=== PATIENT | male | born 1950 | race Hispanic/Latino ===

== ENCOUNTER → 2018-06-08 13:23 | Outpatient (CLI) | payer MEDICARE, OTHER, SELFPAY ==
--- NOTE | 2018-06-08 | DI.US.S_ITS ---
PROCEDURE: US ARTERIAL DUPLEX LE BI INDICATIONS: PERIPHERAL VASCULAR DISEASE TECHNIQUE: Color and pulse Doppler interrogation was performed of both lower extremity arterial systems, with image documentation. COMPARISON: None. FINDINGS: Right lower extremity: Common femoral artery: 115 cm/sec, with triphasic flow. Deep femoral artery: 90 cm/sec, with biphasic flow. Proximal superficial femoral artery: 106 cm/sec, with triphasic flow. Mid superficial femoral artery: 93 cm/sec, with triphasic flow. Distal superficial femoral artery: 94 cm/sec, with triphasic flow. Popliteal artery: 82 cm/sec, with triphasic flow. Posterior tibial artery: 66 cm/sec, with triphasic flow. Anterior tibial artery/dorsalis pedis: 84 cm/sec, with triphasic flow. Rodriguez-scale imaging description: Moderate scattered plaque. Left lower extremity: Common femoral artery: 144 cm/sec, with triphasic flow. Deep femoral artery: 64 cm/sec, with biphasic flow. Proximal superficial femoral artery: 108 cm/sec, with triphasic flow. Mid superficial femoral artery: 84 cm/sec, with triphasic flow. Distal superficial femoral artery: 103 cm/sec, with triphasic flow. Popliteal artery: 80 cm/sec, with triphasic flow. Posterior tibial artery: 65 cm/sec, with triphasic flow. Anterior tibial artery/dorsalis pedis: 79 cm/sec, with triphasic flow. Rodriguez-scale imaging description: Moderate scattered plaque. IMPRESSION: Moderate scattered plaque and no hemodynamically significant peripheral arterial stenosis. Dictated by: Tk CARRINGTON Interpreted: Ramesh Dolan MD on 06/08/2018 at 17:11 Approved by: Ramesh Dolan M.D. on 06/08/2018 at 17:54
--- NOTE | 2018-06-08 | DI.US.S_ITS ---
PROCEDURE: US RONNELL LIMITED SINGLE LEVEL INDICATIONS: DIABETES TECHNIQUE: Ankle-brachial indices were obtained bilaterally and recorded. COMPARISONS: FINDINGS: Right ankle brachial index (RONNELL): 1.1 Left ankle brachial index (RONNELL): 1.0 IMPRESSION: Ankle-brachial indices within normal limits bilaterally. Dictated by: Tk Philippe [facility] Interpreted: Ramesh Dolan MD on 06/08/2018 at 16:11 Approved by: Ramesh Dolan M.D. on 06/08/2018 at 17:54
== END ==
PROVIDERS: Visit Provider Podiatrist
DX: I73.9 Peripheral vascular disease, unspecified (principal); E11.621 Type 2 diabetes mellitus with foot ulcer
CPT/HCPCS: 93922; 93925

== ENCOUNTER → 2018-10-19 14:33 | Outpatient (CLI) | payer MEDICARE, OTHER, SELFPAY | PROVIDERS: PCP Nurse Practitioner Family; Referring Provider Podiatrist; Visit Provider Family Medicine | DX: L89.620 Pressure ulcer of left heel, unstageable (principal) | CPT/HCPCS: 99203; 99213 ==

== ENCOUNTER → 2019-08-03 08:44 | Outpatient (CLI) | payer MEDICARE, OTHER, SELFPAY | PROVIDERS: PCP Nurse Practitioner Family; Referring Provider Podiatrist; Visit Provider Family Medicine | DX: E11.610 Type 2 diabetes mellitus with diabetic neuropathic arthropathy (principal); E11.621 Type 2 diabetes mellitus with foot ulcer; L97.511 Non-pressure chronic ulcer of other part of right foot limited to breakdown of skin; L97.521 Non-pressure chronic ulcer of other part of left foot limited to breakdown of skin; M14.672 Charcot's joint, left ankle and foot; M14.671 Charcot's joint, right ankle and foot; M79.89 Other specified soft tissue disorders; Z79.84 Long term (current) use of oral hypoglycemic drugs; Z79.4 Long term (current) use of insulin; Z98.1 Arthrodesis status | CPT/HCPCS: 11042; 73630; 73660; 87070; 87075; 87077; 87147; 87186; 87205; 99214 ==

== ENCOUNTER → 2019-08-03 11:10 | Outpatient (CLI) | payer MEDICARE, OTHER, SELFPAY ==
--- NOTE | 2019-08-03 | DI.RAD.S_ITS ---
PROCEDURE: XR FOOT LT MIN 3V INDICATIONS: eval osteo lt plant midfoot/ r gr toe TECHNIQUE: 3 views of the foot were acquired. COMPARISON: [facility], CR, XR FOOT 3+ VIEWS LEFT, 05/19/2019, 8:49. [facility], CR, XR FOOT 3 VIEWS WEIGHT BEARING RIGHT, 06/08/2019, 12:38. FINDINGS: Bones: There are stable postsurgical changes from arthrodesis across the subtalar joint as well as the medial aspect of the left midfoot and arthrodesis of the calcaneocuboid joint. No significant change in increased lucency surrounding the fixation hardware traversing the first tarsometatarsal joint. No evidence for hardware fracture. Extensive ossification involving the plantar aspect of the right midfoot with overlying soft tissue edema and apparent skin defect over the plantar aspect of the foot. No evidence for soft tissue gas. No definite underlying osseous erosions. Stable degenerative changes of the left foot most severe at the first and second metatarsophalangeal joints. Persistent subchondral lucencies involving the first through fifth metatarsal heads and base of the fifth proximal phalanx. No new osseous erosions identified. No suspicious areas of cortical destruction compared to prior study. No suspicious periosteal reaction. Overall stable alignment of the left foot. Soft tissues: No tibiotalar joint effusion. Achilles tendon appears normal. There are vascular calcifications. IMPRESSION: 1. Persistent lucency surrounding surgical fixation hardware at the first tarsometatarsal joint which is again suspicious for hardware loosening. No hardware fracture. 2. Extensive ossification over the plantar aspect of the left midfoot with overlying soft tissue defect. No evidence for soft tissue gas. No evidence for underlying cortical destruction or osseous erosions. 3. Other chronic findings as above. Dictated by: Wesley Navarro M.D. on 08/03/2019 at 16:14 Approved by: Wesley Navarro M.D. on 08/03/2019 at 16:26
--- NOTE | 2019-08-03 | DI.RAD.S_ITS ---
PROCEDURE: XR TOE RT MIN 2V INDICATIONS: eval osteo lt plant midfoot/ r gr toe TECHNIQUE: 3 views of the right great toe(s) acquired. COMPARISON: [facility], CR, XR FOOT 3 VIEWS WEIGHT BEARING RIGHT, 06/08/2019, 12:38. 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 Degenerative changes of the right forefoot and midfoot as before. There is now soft tissue swelling and defect over the medial aspect of the distal right great toe which appears to communicate with the distal margin of the first toe distal phalanx. There is mild cortical erosion underlying this area. Soft tissues: No suspicious soft tissue densities. There are vascular calcifications. IMPRESSION: Soft tissue defect overlying the distal right first toe with associated cortical erosions of the underlying great toe distal phalanx. Findings are suspicious for osteomyelitis. Dictated by: Wesley Navarro M.D. on 08/03/2019 at 16:26 Approved by: Wesley Navarro M.D. on 08/03/2019 at 16:31
== END ==
PROVIDERS: PCP Family Medicine; Referring Provider Family Medicine; Visit Provider Family Medicine
DX: E11.621 Type 2 diabetes mellitus with foot ulcer (principal); M79.89 Other specified soft tissue disorders; Z98.1 Arthrodesis status
CPT/HCPCS: 73630; 73660; 87070; 87075; 87205

== ENCOUNTER → 2019-08-09 13:58 | Outpatient (CLI) | payer MEDICARE, OTHER, SELFPAY | PROVIDERS: PCP Family Medicine; Referring Provider Podiatrist; Visit Provider Family Medicine | DX: E11.610 Type 2 diabetes mellitus with diabetic neuropathic arthropathy (principal); L97.511 Non-pressure chronic ulcer of other part of right foot limited to breakdown of skin; L97.521 Non-pressure chronic ulcer of other part of left foot limited to breakdown of skin | CPT/HCPCS: 11042; 99214 ==

== ENCOUNTER → 2019-08-16 14:53 | Outpatient (CLI) | payer MEDICARE, OTHER, SELFPAY | PROVIDERS: PCP Family Medicine; Referring Provider Podiatrist; Visit Provider Family Medicine | DX: E11.610 Type 2 diabetes mellitus with diabetic neuropathic arthropathy (principal); M86.671 Other chronic osteomyelitis, right ankle and foot; L97.511 Non-pressure chronic ulcer of other part of right foot limited to breakdown of skin; L97.521 Non-pressure chronic ulcer of other part of left foot limited to breakdown of skin; Z79.4 Long term (current) use of insulin; Z79.84 Long term (current) use of oral hypoglycemic drugs | CPT/HCPCS: 11042; 99213 ==

== ENCOUNTER → 2022-01-24 09:28 | Outpatient (CLI) | payer MEDICARE, OTHER, SELFPAY | PROVIDERS: PCP Family Medicine; Visit Provider Family Medicine | DX: E11.621 Type 2 diabetes mellitus with foot ulcer (principal); L97.522 Non-pressure chronic ulcer of other part of left foot with fat layer exposed; M14.671 Charcot's joint, right ankle and foot; M14.672 Charcot's joint, left ankle and foot; L08.89 Other specified local infections of the skin and subcutaneous tissue; L53.9 Erythematous condition, unspecified; E11.40 Type 2 diabetes mellitus with diabetic neuropathy, unspecified; Z79.4 Long term (current) use of insulin | CPT/HCPCS: 11042; 87070; 87075; 87077; 87147; 87186; 87205; 99214 ==

== ENCOUNTER → 2022-02-05 09:30 | Outpatient (CLI) | payer MEDICARE, OTHER, SELFPAY | PROVIDERS: PCP Family Medicine; Referring Provider Family Medicine; Visit Provider Family Medicine | DX: E11.621 Type 2 diabetes mellitus with foot ulcer (principal); L97.522 Non-pressure chronic ulcer of other part of left foot with fat layer exposed; L97.512 Non-pressure chronic ulcer of other part of right foot with fat layer exposed; E11.610 Type 2 diabetes mellitus with diabetic neuropathic arthropathy; Z79.4 Long term (current) use of insulin; L08.89 Other specified local infections of the skin and subcutaneous tissue; A49.01 Methicillin susceptible Staphylococcus aureus infection, unspecified site; E11.40 Type 2 diabetes mellitus with diabetic neuropathy, unspecified | CPT/HCPCS: 11042; 99214 ==

== ENCOUNTER → 2022-02-12 10:00 | Outpatient (CLI) | payer MEDICARE, OTHER, SELFPAY | PROVIDERS: PCP Family Medicine; Referring Provider Family Medicine; Visit Provider Family Medicine | DX: E11.621 Type 2 diabetes mellitus with foot ulcer (principal); L97.522 Non-pressure chronic ulcer of other part of left foot with fat layer exposed; L97.512 Non-pressure chronic ulcer of other part of right foot with fat layer exposed; E11.610 Type 2 diabetes mellitus with diabetic neuropathic arthropathy; R60.0 Localized edema; Z79.4 Long term (current) use of insulin; Z79.84 Long term (current) use of oral hypoglycemic drugs | CPT/HCPCS: 11042; 97597 ==

== ENCOUNTER → 2022-03-05 09:50 | Outpatient (CLI) | payer MEDICARE, OTHER, SELFPAY | PROVIDERS: PCP Family Medicine; Referring Provider Podiatrist; Visit Provider Family Medicine | DX: E11.621 Type 2 diabetes mellitus with foot ulcer (principal); L97.522 Non-pressure chronic ulcer of other part of left foot with fat layer exposed; E11.610 Type 2 diabetes mellitus with diabetic neuropathic arthropathy; Z79.4 Long term (current) use of insulin; Z89.421 Acquired absence of other right toe(s); Z79.84 Long term (current) use of oral hypoglycemic drugs | CPT/HCPCS: 11042; 99213 ==

== ENCOUNTER → 2022-03-12 13:28 | Outpatient (CLI) | payer MEDICARE, OTHER, SELFPAY | PROVIDERS: PCP Family Medicine; Referring Provider Podiatrist; Visit Provider Family Medicine | DX: E11.610 Type 2 diabetes mellitus with diabetic neuropathic arthropathy (principal); Z86.31 Personal history of diabetic foot ulcer; Z79.4 Long term (current) use of insulin; Z79.84 Long term (current) use of oral hypoglycemic drugs; Z89.421 Acquired absence of other right toe(s) | CPT/HCPCS: 99212; 99213 ==

== ENCOUNTER → 2022-11-20 08:52 | Outpatient (CLI) | payer MEDICARE, OTHER, SELFPAY | PROVIDERS: PCP Family Medicine; Referring Provider Podiatrist; Visit Provider Surgery | DX: E11.621 Type 2 diabetes mellitus with foot ulcer (principal); L97.522 Non-pressure chronic ulcer of other part of left foot with fat layer exposed; E11.42 Type 2 diabetes mellitus with diabetic polyneuropathy; L84 Corns and callosities | CPT/HCPCS: 11042; 99213; 99214 ==

== ENCOUNTER → 2022-11-27 14:28 | Outpatient (CLI) | payer MEDICARE, OTHER, SELFPAY | PROVIDERS: PCP Family Medicine; Referring Provider Podiatrist; Visit Provider Surgery | DX: Z86.31 Personal history of diabetic foot ulcer (principal); A52.16 Charcot's arthropathy (tabetic) | CPT/HCPCS: 99212; 99213 ==

== ENCOUNTER → 2023-12-29 13:02 | Outpatient (CLI) | payer MEDICARE, OTHER, SELFPAY | PROVIDERS: PCP Family Medicine; Referring Provider Podiatrist; Visit Provider Surgery | DX: E11.621 Type 2 diabetes mellitus with foot ulcer (principal); E11.42 Type 2 diabetes mellitus with diabetic polyneuropathy; L97.522 Non-pressure chronic ulcer of other part of left foot with fat layer exposed; L97.422 Non-pressure chronic ulcer of left heel and midfoot with fat layer exposed; M21.6X2 Other acquired deformities of left foot; M14.672 Charcot's joint, left ankle and foot; M14.671 Charcot's joint, right ankle and foot | CPT/HCPCS: 11042; 87070; 87075; 87077; 87147; 87205; 99213; 99214 ==

== ENCOUNTER → 2024-01-05 14:52 | Outpatient (CLI) | payer MEDICARE, OTHER, SELFPAY | PROVIDERS: PCP Family Medicine; Referring Provider Podiatrist; Visit Provider Surgery | DX: E11.621 Type 2 diabetes mellitus with foot ulcer (principal); L97.522 Non-pressure chronic ulcer of other part of left foot with fat layer exposed; E11.42 Type 2 diabetes mellitus with diabetic polyneuropathy; M21.6X2 Other acquired deformities of left foot; M14.671 Charcot's joint, right ankle and foot; M14.672 Charcot's joint, left ankle and foot | CPT/HCPCS: 11042 ==

== ENCOUNTER → 2024-01-13 11:10 | Outpatient (CLI) | payer MEDICARE, OTHER, SELFPAY | LOC: WC 11:14 | PROVIDERS: PCP Family Medicine; Referring Provider Podiatrist; Visit Provider Surgery | DX: E11.621 Type 2 diabetes mellitus with foot ulcer (principal); E11.42 Type 2 diabetes mellitus with diabetic polyneuropathy; L97.422 Non-pressure chronic ulcer of left heel and midfoot with fat layer exposed; M21.6X2 Other acquired deformities of left foot; Z89.422 Acquired absence of other left toe(s); M14.672 Charcot's joint, left ankle and foot; M14.671 Charcot's joint, right ankle and foot | CPT/HCPCS: 99213 ==

== ENCOUNTER → 2024-01-20 11:56 | Outpatient (CLI) | payer MEDICARE, OTHER, SELFPAY | PROVIDERS: PCP Family Medicine; Referring Provider Podiatrist; Visit Provider Physician Assistant | DX: E11.621 Type 2 diabetes mellitus with foot ulcer (principal); L97.522 Non-pressure chronic ulcer of other part of left foot with fat layer exposed | CPT/HCPCS: 99213 ==

== ENCOUNTER → 2024-01-27 13:23 | Outpatient (CLI) | payer MEDICARE, OTHER, SELFPAY | LOC: WC 13:24 | PROVIDERS: PCP Family Medicine; Referring Provider Podiatrist; Visit Provider Surgery | DX: E11.621 Type 2 diabetes mellitus with foot ulcer (principal); E11.42 Type 2 diabetes mellitus with diabetic polyneuropathy; L97.422 Non-pressure chronic ulcer of left heel and midfoot with fat layer exposed; L84 Corns and callosities; M21.6X2 Other acquired deformities of left foot | CPT/HCPCS: 11042 ==

== ENCOUNTER → 2024-02-03 09:57 | Outpatient (CLI) | payer MEDICARE, OTHER, SELFPAY | LOC: WC 09:59 | PROVIDERS: PCP Family Medicine; Referring Provider Podiatrist; Visit Provider Surgery | DX: E11.621 Type 2 diabetes mellitus with foot ulcer (principal); E11.42 Type 2 diabetes mellitus with diabetic polyneuropathy; L97.422 Non-pressure chronic ulcer of left heel and midfoot with fat layer exposed; L84 Corns and callosities; M21.6X2 Other acquired deformities of left foot; M14.672 Charcot's joint, left ankle and foot; M14.671 Charcot's joint, right ankle and foot | CPT/HCPCS: 11042; 99213 ==

== ENCOUNTER → 2024-02-09 15:23 | Outpatient (CLI) | payer MEDICARE, OTHER, SELFPAY | LOC: WC 15:24 | PROVIDERS: PCP Family Medicine; Referring Provider Podiatrist; Visit Provider Surgery | DX: E11.621 Type 2 diabetes mellitus with foot ulcer (principal); L97.422 Non-pressure chronic ulcer of left heel and midfoot with fat layer exposed; M21.6X2 Other acquired deformities of left foot; L84 Corns and callosities; R20.8 Other disturbances of skin sensation | CPT/HCPCS: 11042; 99212 ==

== ENCOUNTER → 2024-02-16 09:26 | Outpatient (CLI) | payer MEDICARE, OTHER, SELFPAY | PROVIDERS: PCP Family Medicine; Referring Provider Podiatrist; Visit Provider Surgery | DX: E11.621 Type 2 diabetes mellitus with foot ulcer (principal); E11.42 Type 2 diabetes mellitus with diabetic polyneuropathy; L97.522 Non-pressure chronic ulcer of other part of left foot with fat layer exposed; L84 Corns and callosities; M21.6X2 Other acquired deformities of left foot | CPT/HCPCS: 15275; Q4159 ==

== ENCOUNTER → 2024-02-24 09:12 | Outpatient (CLI) | payer MEDICARE, OTHER, SELFPAY | PROVIDERS: PCP Family Medicine; Referring Provider Podiatrist; Visit Provider Surgery | DX: E11.621 Type 2 diabetes mellitus with foot ulcer (principal); E11.42 Type 2 diabetes mellitus with diabetic polyneuropathy; L97.522 Non-pressure chronic ulcer of other part of left foot with fat layer exposed; L84 Corns and callosities; M21.6X2 Other acquired deformities of left foot | CPT/HCPCS: 15275; Q4159 ==

== ENCOUNTER → 2024-03-01 09:43 | Outpatient (CLI) | payer MEDICARE, OTHER, SELFPAY | LOC: WC 09:44 | PROVIDERS: PCP Family Medicine; Referring Provider Podiatrist; Visit Provider Surgery | DX: E11.621 Type 2 diabetes mellitus with foot ulcer (principal); E11.42 Type 2 diabetes mellitus with diabetic polyneuropathy; L97.422 Non-pressure chronic ulcer of left heel and midfoot with fat layer exposed; L84 Corns and callosities; M21.6X2 Other acquired deformities of left foot; M14.671 Charcot's joint, right ankle and foot; M14.672 Charcot's joint, left ankle and foot | CPT/HCPCS: 15275; 99213; Q4159 ==

== ENCOUNTER → 2024-03-08 09:06 | Outpatient (CLI) | payer MEDICARE, OTHER, SELFPAY | LOC: WC 09:07 | PROVIDERS: PCP Family Medicine; Referring Provider Family Medicine; Visit Provider Surgery | DX: E11.621 Type 2 diabetes mellitus with foot ulcer (principal); E11.42 Type 2 diabetes mellitus with diabetic polyneuropathy; L97.422 Non-pressure chronic ulcer of left heel and midfoot with fat layer exposed; L84 Corns and callosities; M21.6X2 Other acquired deformities of left foot | CPT/HCPCS: 11042; 87070; 87075; 87077; 87147; 87186; 87205 ==

== ENCOUNTER → 2024-03-15 09:05 | Outpatient (CLI) | payer MEDICARE, OTHER, SELFPAY | LOC: WC 09:07 | PROVIDERS: PCP Family Medicine; Referring Provider Podiatrist; Visit Provider Surgery | DX: L97.422 Non-pressure chronic ulcer of left heel and midfoot with fat layer exposed (principal); E11.621 Type 2 diabetes mellitus with foot ulcer; E11.42 Type 2 diabetes mellitus with diabetic polyneuropathy; M21.6X2 Other acquired deformities of left foot; L84 Corns and callosities | CPT/HCPCS: 11042 ==

== ENCOUNTER → 2024-03-22 08:58 | Outpatient (CLI) | payer MEDICARE, OTHER, SELFPAY | LOC: WC 08:59 | PROVIDERS: PCP Family Medicine; Referring Provider Podiatrist; Visit Provider Surgery | DX: E11.621 Type 2 diabetes mellitus with foot ulcer (principal); E11.42 Type 2 diabetes mellitus with diabetic polyneuropathy; L97.522 Non-pressure chronic ulcer of other part of left foot with fat layer exposed; L84 Corns and callosities; M21.6X2 Other acquired deformities of left foot | CPT/HCPCS: 15275; Q4159 ==

== ENCOUNTER → 2024-04-01 14:42 | Outpatient (CLI) | payer MEDICARE, OTHER, SELFPAY | LOC: WC 14:43 | PROVIDERS: PCP Family Medicine; Referring Provider Podiatrist; Visit Provider Surgery | DX: E11.621 Type 2 diabetes mellitus with foot ulcer (principal); E11.42 Type 2 diabetes mellitus with diabetic polyneuropathy; L97.422 Non-pressure chronic ulcer of left heel and midfoot with fat layer exposed; L84 Corns and callosities; M21.6X2 Other acquired deformities of left foot | CPT/HCPCS: 15275; 99213; Q4160 ==

== ENCOUNTER → 2024-04-08 09:04 | Outpatient (CLI) | payer MEDICARE, OTHER, SELFPAY | LOC: WC 09:07 | PROVIDERS: PCP Family Medicine; Referring Provider Podiatrist; Visit Provider Surgery | DX: L97.422 Non-pressure chronic ulcer of left heel and midfoot with fat layer exposed (principal); E11.621 Type 2 diabetes mellitus with foot ulcer; E11.42 Type 2 diabetes mellitus with diabetic polyneuropathy; L84 Corns and callosities; M21.6X2 Other acquired deformities of left foot | CPT/HCPCS: 15275; Q4159 ==

== ENCOUNTER → 2024-04-15 09:56 | Outpatient (CLI) | payer MEDICARE, OTHER, SELFPAY | LOC: WC 09:57 | PROVIDERS: PCP Family Medicine; Referring Provider Family Medicine; Visit Provider Surgery | DX: E11.621 Type 2 diabetes mellitus with foot ulcer (principal); E11.42 Type 2 diabetes mellitus with diabetic polyneuropathy; L97.422 Non-pressure chronic ulcer of left heel and midfoot with fat layer exposed; L84 Corns and callosities; M21.6X2 Other acquired deformities of left foot | CPT/HCPCS: 11042 ==

== ENCOUNTER → 2024-04-22 13:27 | Outpatient (CLI) | payer MEDICARE, OTHER, SELFPAY | LOC: WC 13:29 | PROVIDERS: PCP Family Medicine; Referring Provider Podiatrist; Visit Provider Physician Assistant | DX: E11.621 Type 2 diabetes mellitus with foot ulcer (principal); E11.42 Type 2 diabetes mellitus with diabetic polyneuropathy; L97.422 Non-pressure chronic ulcer of left heel and midfoot with fat layer exposed; L84 Corns and callosities; M14.671 Charcot's joint, right ankle and foot; M14.672 Charcot's joint, left ankle and foot | CPT/HCPCS: 11042; 99213 ==

== ENCOUNTER → 2024-04-29 14:06 | Outpatient (CLI) | payer MEDICARE, OTHER, SELFPAY | PROVIDERS: PCP Family Medicine; Referring Provider Podiatrist; Visit Provider Surgery | DX: E11.621 Type 2 diabetes mellitus with foot ulcer (principal); L97.522 Non-pressure chronic ulcer of other part of left foot with fat layer exposed; L84 Corns and callosities; E11.42 Type 2 diabetes mellitus with diabetic polyneuropathy; M21.6X2 Other acquired deformities of left foot | CPT/HCPCS: 11042; 87070; 87075; 87077; 87186; 87205; 99212; 99213 ==

== ENCOUNTER → 2024-05-06 08:52 | Outpatient (CLI) | payer MEDICARE, OTHER, SELFPAY | PROVIDERS: PCP Family Medicine; Referring Provider Podiatrist; Visit Provider Surgery | DX: E11.621 Type 2 diabetes mellitus with foot ulcer (principal); E11.42 Type 2 diabetes mellitus with diabetic polyneuropathy; L97.422 Non-pressure chronic ulcer of left heel and midfoot with fat layer exposed; L84 Corns and callosities; M21.6X2 Other acquired deformities of left foot | CPT/HCPCS: 11042 ==

== ENCOUNTER → 2024-05-13 12:03 | Outpatient (CLI) | payer MEDICARE, OTHER, SELFPAY | PROVIDERS: PCP Family Medicine; Referring Provider Podiatrist; Visit Provider Surgery | DX: E11.42 Type 2 diabetes mellitus with diabetic polyneuropathy (principal); E11.621 Type 2 diabetes mellitus with foot ulcer; L97.522 Non-pressure chronic ulcer of other part of left foot with fat layer exposed; L84 Corns and callosities; M21.6X2 Other acquired deformities of left foot | CPT/HCPCS: 11042 ==

== ENCOUNTER → 2024-05-19 09:01 | Outpatient (CLI) | payer MEDICARE, OTHER, SELFPAY | PROVIDERS: Referring Provider Podiatrist; Visit Provider Physician Assistant | DX: E11.621 Type 2 diabetes mellitus with foot ulcer (principal); L97.422 Non-pressure chronic ulcer of left heel and midfoot with fat layer exposed; L84 Corns and callosities; M14.672 Charcot's joint, left ankle and foot | CPT/HCPCS: 11042; 99214 ==